=== PATIENT | female | born 1950 | race African-American/Black ===

== ENCOUNTER 2020-01-21 01:34 | Emergency (ER) | payer MEDICARE, OTHER ==
[~2020-01-21] VITALS: Ht 165.1 cm; Wt 59.0 kg
[2020-01-21 01:45] VITALS: BP 145/93
--- NOTE | 2020-01-21 01:45 | NUR ---
ED Nurse Note: Pt walked into ED from home for c/o R ear pain onset five days ago. Pt believes a piece of her hearing aid was stuck inside and she pushed it further into ear canal while attempting to remove it. Pt is aaox4, no cardiac or respiratory distress.
[2020-01-21] MEDS ORDERED: CORTISPORIN EAR10 ML OTIC (01:50)
[2020-01-21 01:55] VITALS: BP 145/93
--- NOTE | 2020-01-21 01:55 | NUR ---
ER DISCHARGE NOTE: Patient is cleared to be discharged per ERMD, pt is aox4, on room air, with stable vital signs. pt was given dc and prescription instructions, pt was able to verbalize understanding, pt id band removed. pt is able to ambulate with steady gait. pt took all belongings.
--- NOTE | 2020-01-21 01:55 | Emergency Room Report ---
History of Present Illness General Chief Complaint: Earache Source: Patient Present Illness HPI Patient presents with complaints of irritation to the right ear Reports that about 5 days ago she felt that a small piece of the hearing aid had been left there And as it continued to provide some discomfort she was concerned and came to the ER Denies any fevers or chills denies any headache She has an irritation sensation area Denies any dizziness denies any fevers Denies any vomiting Allergies: Uncoded Allergies: SULFA (Allergy, Unknown, 01/21/20) COVID-19 Screening Contact w/high risk pt: No Recent Travel to affected area: No Experienced COVID-19 symptoms?: No Patient History Past Medical History: see triage record Last Menstrual Period: n/a Reviewed Nursing Documentation: PMH: Agreed; PSxH: Agreed Nursing Documentation-PMH Hx COPD: Yes Review of Systems All Other Systems: negative except mentioned in HPI Physical Exam Vital Signs Date Time Temp Pulse Resp B/P (MAP) Pulse Ox O2 Delivery O2 Flow Rate FiO2 01/21/20 01:39 97.0 93 18 145/93 (110) 94 Sp02 EP Interpretation: reviewed, normal General Appearance: well appearing, no apparent distress Head: normocephalic, atraumatic Eyes: bilateral eye PERRL, bilateral eye EOMI ENT: hearing grossly normal, normal pharynx, uvula midline, other - Right tympanic membrane is clear, the canal however does appear mildly irritated and erythematous still patent however no obvious foreign body was seen Neck: full range of motion, supple, no meningismus, no bony tend Respiratory: lungs clear, normal breath sounds, no rhonchi, no respiratory distress, no retraction, no accessory muscle use Cardiovascular #1: normal peripheral pulses, regular rate, rhythm, no edema, no gallop, no JVD, no murmur Gastrointestinal: non tender, soft, non-distended Musculoskeletal: normal inspection Neurologic: distribution manager III-XII nml as tested, oriented x3, sensory intact, responsive Psychiatric: mood/affect normal Skin: no rash Lymphatic: normal inspection, no adenopathy Medical Decision Making Diagnostic Impression: Primary Impression: otitis externa ER Course I did investigate the right ear closely I do not appreciate any obvious foreign body patient does have A sample from the left ear and is a small black piece Which again I am not able to appreciate in the right side The canal however does appear somewhat irritated patient is diagnosed with otitis externa placed on medication and will have close outpatient follow-up Last Vital Signs Date Time Temp Pulse Resp B/P (MAP) Pulse Ox O2 Delivery O2 Flow Rate FiO2 01/21/20 01:45 97.0 93 18 145/93 94 Status: improved Disposition: HOME, SELF-CARE Condition: Stable Scripts Neomycin/Polymyxin B Sulf/Hc* (CORTISPORIN EAR SOLUTION*) 10 Ml Solution 2 DROP OTIC FOUR TIMES A DAY for 5 Days, #1 EA Instill in affected ear as directed for 7 days Prov: Niki Rodriguez DO 01/21/20 Referrals: PMD Patient Instructions: Otitis Externa, [id number] Additional Instructions: Patient is provided with the discharge instructions notified to follow up with primary doctor in the next 2-3 days otherwise return to the er with any worsening symptoms. Please note that this report is being documented using [employer] technology. This can lead to erroneous entry secondary to incorrect interpretation by the dictating instrument. Niki Rodriguez DO Jan 21, 2020 01:55
== END 2020-01-21 01:55 | disposition home or self-care (01) ==
LOC: EMR 01:50
DX: H60.91 Unspecified otitis externa, right ear (principal); J44.9 Chronic obstructive pulmonary disease, unspecified; Z88.2 Allergy status to sulfonamides
CPT/HCPCS: 99282